=== PATIENT | male | born 1990 | race Caucasian/White ===

== ENCOUNTER 2017-09-26 14:57 | Emergency (ER) | payer OTHER, SELFPAY ==
[2017-09-26 15:03] VITALS: BP 129/65; PULSE 60; RESP 18; TEMP 36.6; O2SAT 100; BMI 23.8
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
[2017-09-26] MEDS: HYDROcodone Bitartrate/Apap 5/325 Tablet PO (15:15)
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
--- NOTE | 2017-09-26 15:42 | ED.DEP ---
ED Disposition - Plan for ED Patient: Chief Complaint: Upper Extremity Injury Instructions: ED Fx Clavicle Prescriptions: Hydrocodone/Acetaminophen [[place] 5-325 Tablet] 1 - 2 ea PO 4X/DAY PRN PRN 5 Days #20 tab PRN Reason: Pain Referrals: Lola Easton DO [STAFF PHYSICIAN] - 2 Days
[2017-09-26 15:56] VITALS: PULSE 60
== END 2017-09-26 16:11 | disposition home or self-care (01) ==
LOC: ED 16:07
PROVIDERS: Emergency Provider Emergency Medicine
DX: S42.021A Displaced fracture of shaft of right clavicle, initial encounter for closed fracture (principal); V86.69XA Passenger of other special all-terrain or other off-road motor vehicle injured in nontraffic accident, initial encounter; Y93.9 Activity, unspecified; Y92.9 Unspecified place or not applicable; Y99.9 Unspecified external cause status
CPT/HCPCS: 73000; 99283

== ENCOUNTER 2017-10-01 07:53 | Day surgery (SDC) | payer OTHER, SELFPAY ==
[2017-10-01] VITALS (10 sets, daily range): BP systolic 95–126; BP diastolic 42–65; PULSE 74–101; RESP 14–18; TEMP 37–37.1; O2SAT 91–100; BMI 24.0
--- NOTE | 2017-10-01 09:35 | RAD_ITS ---
STUDY: X-RAY - RIGHT CLAVICLE REASON FOR EXAM: Male, 27 years old. ORIF of the right clavicle. TECHNIQUE: 2 intraoperative view(s) of the clavicle. COMPARISON: Comparison is made with prior examination dated September 26, 2017. FINDINGS: The patient is status post open reduction and fixation of the right clavicular fracture. There is good alignment. RAD/Clavicle IMPRESSION: Satisfactory ORIF of the right clavicular fracture. Electronically Signed: Robin Galindo MD at 12:36 EDT Tel [phone], Service support ,
[2017-10-01] MEDS: Cefazolin 2 GM in 0.9% Normal Saline 100 ML IV (09:53)
--- NOTE | 2017-10-01 11:14 | PCM.DC.ORTHO ---
Discharge Diet: No Restrictions Discharge Activity: May Not Drive May shower in (days): 1 Ice area for (Minutes): 20 - Ice area for 20 minutes each hour while awake Call your doctor if your incision/area has: Continuous Slow Oozing, Sudden Increased Bleeding, Increased Pain/ Swelling, Increased Redness, Foul Smelling Discharge Call your doctor if you observe: Fever of 101 or Higher, Coldness, Increased Pain, Numbness or Tingling, Change in Color Suture Line Care: Avoid Pulling/Pushing Change Dressing in (Days):: 3 - leave bottom occlusive dressing in place Cleanse incision/area with: Soap & Water - after outer dressing removed Allergies/Adverse Reactions: Allergies latex Allergy (Verified 10/01/17 08:22) Itching Medications to take at Discharge Fexofenadine/Pseudoephedrine [Debby-D 24 Hour Tablet] 1 each PO DAILY PRN 09/26/17 Hydrocodone/Acetaminophen [[place] 5-325 Tablet] 1 - 2 ea PO 4X/DAY PRN PRN 5 Days #20 tab 09/26/17 Multivitamin [Multiple Vitamins] 1 each PO DAILY 09/30/17 Please Follow Up With: Aldair Nix, When: as scheduled
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
== END 2017-10-01 15:27 | disposition home or self-care (01) ==
LOC: SDC 07:55 → AC 07:58
PROVIDERS: Visit Provider Orthopaedic Surgery
PROC: (CPT 23515; principal; 2017-10-01 09:15)
DX: S42.021A Displaced fracture of shaft of right clavicle, initial encounter for closed fracture (principal); V89.2XXA Person injured in unspecified motor-vehicle accident, traffic, initial encounter; Y93.9 Activity, unspecified; Y92.9 Unspecified place or not applicable; Y99.9 Unspecified external cause status
CPT/HCPCS: 23515; 64415; 73000; 76000; C1713; J7120; J2405